=== PATIENT | female | born 1985 | race Caucasian/White ===

== ENCOUNTER 2020-03-22 12:16 | Day surgery (SDC) | payer OTHER ==
[~2020-03-22] VITALS: Ht 167.6 cm; Wt 95.5 kg
[~2020-03-22 12:16] MED LIST: AMPICILLIN SODIUM 1 GM/NS 50 ML IV ONE; DEXTROSE 5% IV ONE; GENTAMICIN SULFATE IV ONE; SODIUM CHLORIDE 0.9% 1,000 ML ONE; WATER IV ONE
[2020-03-22] MEDS ORDERED: PROPOFOL 1% 20 ML VIAL IVP ONE (12:17)
[2020-03-22] MEDS ORDERED: LIDOCAINE/PF 2% 5 ML SYRINGE IVP ONE (12:17)
[2020-03-22] MEDS ORDERED: MetroNIDAZOLE 500 MG/NACL 100 ML IV ONE ×2 (12:22→12:24)
[2020-03-22] MEDS ORDERED: SODIUM CHLORIDE 0.9% 1,000 ML IV ONE (12:30)
[2020-03-22 12:54] LABS: COVID AG,FIA SOURCE NASOPHARYNGEAL
[2020-03-22 13:41] LABS: CALCIUM, TOTAL 8.1 mg/dL (8.8-10.5); CREATININE 10.21 mg/dL (0.60-1.30); POTASSIUM 3.5 mmol/L (3.5-5.1)
[2020-03-22] MEDS: MetroNIDAZOLE 500 MG/NACL 100 ML IV SCH ×2 (13:56→14:02)
[2020-03-22] MEDS ORDERED: OXYGEN THERAPY IH SCH (20:00)
== END 2020-03-22 16:20 | disposition home or self-care (01) ==
LOC: SURGERY 12:16
PROVIDERS: ATTEND Specialist
DX: K62.5 Hemorrhage of anus and rectum (principal); R19.7 Diarrhea, unspecified; K64.9 Unspecified hemorrhoids; E78.00 Pure hypercholesterolemia, unspecified; K31.89 Other diseases of stomach and duodenum; N18.9 Chronic kidney disease, unspecified; Z98.890 Other specified postprocedural states
CPT/HCPCS: 36415; 43239; 45380; 80048; 84702; 87426; 88305; 88312; 88313; C1769; J0290; J1580; J2704; J3490 ×2; J7030; J7060